=== PATIENT | male | born 1970 | race Caucasian/White ===

== ENCOUNTER 2023-02-18 00:14 | Emergency (ER) | payer SELFPAY ==
[2023-02-18 00:35] VITALS: BP 140/82; PULSE 100; RESP 20; BMI 33.6
[2023-02-18] MEDS ORDERED: DIPHTH,PERTUSS(ACELL),TET 0.5 ML DISP.SYRIN IM ONE (00:42)
[2023-02-18] MEDS ORDERED: AMOX TR/POT CLAV 875MG/125MG TABLETS (FP) PO ONE (01:15)
[2023-02-18] MEDS ORDERED: AMOX TR/POT CLAV 875MG/125MG TABLETS (FP) ONE (01:22)
== END 2023-02-18 01:50 | disposition home or self-care (01) ==
LOC: JER 00:14
PROC: 0HQDXZZ Repair Right Lower Arm Skin, External Approach (ICD-10-PCS; principal; 2023-02-18)
PROC: 3E0234Z Introduction of Serum, Toxoid and Vaccine into Muscle, Percutaneous Approach (ICD-10-PCS; 2023-02-18)
DX: S51.811A Laceration without foreign body of right forearm, initial encounter (principal); W54.0XXA Bitten by dog, initial encounter
CPT/HCPCS: 90715; 99283-25

== ENCOUNTER 2023-03-02 18:52 | Emergency (ER) | payer SELFPAY ==
[2023-03-02 18:57] VITALS: BP 158/89; PULSE 90; RESP 19; TEMP 98.6; BMI 33.0
== END 2023-03-02 19:40 | disposition home or self-care (01) ==
LOC: JERFT 18:52
DX: Z48.02 Encounter for removal of sutures (principal)
CPT/HCPCS: 99281-25

== ENCOUNTER 2023-12-24 20:18 | Observation (INO) | payer BC ==
[2023-12-24] MEDS ORDERED: FAMOTIDINE 20 MG/50 ML IVPB 20 MG/50 ML MG IVPB ONE (21:17)
[2023-12-24] MEDS: ACETAMINOPHEN 1000 MG/100 ML BAG IVPB ONE (21:23)
[2023-12-24] MEDS: FAMOTIDINE 20 MG/50 ML IVPB 20 MG/50 ML MG IVPB ONE (21:23)
[2023-12-24 21:29] LABS: BASO % 0.5 % (0-2.0); EOS % 1.1 % (0-4.5); HEMATOCRIT 42.7 % (35.4-49); HEMOGLOBIN 14.5 GM/dL (11.7-16.9); LYMPH % 16.1 % (8-40); MCH 29.4 pg (25.7-33.7); MCHC 34.1 g/dl (32.0-35.9); MEAN CELL VOLUME 86.1 fl (80-96); MEAN PLT VOLUME 7.2 fl (7.5-11.1); MONO % 7.9 % (3.8-10.2); NEUT % 74.4 % (42.8-82.8); PLATELET COUNT 412 10^3/uL (134-434); RBC 4.95 M/mm3 (4.00-5.60); RDW 13.2 % (11.9-15.9); WHITE BLOOD COUNT 17.5 K/mm3 (4.0-10.0)
[2023-12-24 21:37] LABS: POTASSIUM 3.9 mmol/L (3.5-5.1)
[2023-12-24 21:41] LABS: CALCIUM 10.8 mg/dL (8.5-10.1)
[2023-12-24 21:42] LABS: ALBUMIN 4.1 g/dl (3.4-5.0)
[2023-12-24 21:47] LABS: BILIRUBIN,TOTAL 0.4 mg/dL (0.2-1); TOT PROT 7.6 g/dl (6.4-8.2)
[2023-12-24 21:48] LABS: BLOOD UREA NITROGEN 21.2 mg/dL (7-18)
[2023-12-24] MEDS ORDERED: morphine SULFATE 4 MG/ML VIAL ONE (22:33)
[2023-12-24] MEDS: morphine SULFATE 4 MG/ML VIAL IVPUSH ONE (22:39)
[2023-12-24 22:42] LABS: URINE APPEARANCE CLEAR; URINE BILIRUBIN NEGATIVE (NEGATIVE); URINE COLOR YELLOW; URINE GLUCOSE (UA) NEGATIVE (NEGATIVE); URINE KETONE NEGATIVE (NEGATIVE)
[2023-12-24 22:43] LABS: EPI CELLS 5.1 /uL (0-25.1); HYALINE CASTS 0.14 /uL (0-3.1); URINE BACTERIA 2.8 /uL (0-1359); URINE LEUK ESTERASE NEGATIVE (NEGATIVE); URINE NITRITE NEGATIVE (NEGATIVE); URINE PROTEIN TRACE (NEGATIVE); URINE RBC 4.9 /uL (0-23.9); URINE UROBILINOGEN 0.2 mg/dL (0.2-1.0); URINE WBC 9.7 /uL (0-25.8)
[2023-12-24] MEDS: SODIUM CHLORIDE 0.9% 500 ML INFUS.BAG IV ONE (23:30)
[2023-12-25] MEDS ORDERED: PANTOPRAZOLE SODIUM 40 MG VIAL ONE (00:28)
[2023-12-25] MEDS: PANTOPRAZOLE SODIUM 40 MG VIAL IVPUSH ONE (00:42)
[2023-12-25 07:03] LABS: BASO % 0.3 % (0-2.0); EOS % 1.5 % (0-4.5); HEMATOCRIT 39.6 % (35.4-49); HEMOGLOBIN 13.4 GM/dL (11.7-16.9); LYMPH % 23.4 % (8-40); MCH 29.6 pg (25.7-33.7); MCHC 33.8 g/dl (32.0-35.9); MEAN CELL VOLUME 87.6 fl (80-96); MEAN PLT VOLUME 7.5 fl (7.5-11.1); MONO % 8.5 % (3.8-10.2); NEUT % 66.3 % (42.8-82.8); PLATELET COUNT 359 10^3/uL (134-434); RBC 4.52 M/mm3 (4.00-5.60); RDW 13.2 % (11.9-15.9); WHITE BLOOD COUNT 13.4 K/mm3 (4.0-10.0)
[2023-12-25 07:14] LABS: CALCIUM 9.6 mg/dL (8.5-10.1)
[2023-12-25 07:15] LABS: ALBUMIN 3.4 g/dl (3.4-5.0); BLOOD UREA NITROGEN 16.4 mg/dL (7-18); MAGNESIUM 1.8 mg/dL (1.8-2.4)
[2023-12-25 07:18] LABS: CREATININE 0.9 mg/dL (0.55-1.3); PHOSPHOROUS 3.8 mg/dL (2.5-4.9)
[2023-12-25 07:20] LABS: BILIRUBIN,TOTAL 0.4 mg/dL (0.2-1); TOT PROT 6.7 g/dl (6.4-8.2)
[2023-12-25] MEDS: INSULIN ASPART SLIDING SCALE (NOVOLOG) 1 VIAL SQ SCH (07:26)
[2023-12-25] MEDS ORDERED: ACETAMINOPHEN INJECTION 100 ML ONE (09:59)
[2023-12-25] MEDS ORDERED: PANTOPRAZOLE SODIUM 40 MG/100 ML BAG IVPB ONE (09:59)
[2023-12-25 10:01] LABS: COCAINE, UR NEGATIVE (NEGATIVE); OPIATES, URI NEGATIVE (NEGATIVE); PHENCYCLIDINE,URINE NEGATIVE (NEGATIVE); URINE AMPHETAMINES NEGATIVE (NEGATIVE)
[2023-12-25 10:02] LABS: METHADONE, UR NEGATIVE (NEGATIVE)
[2023-12-25 10:14] LABS: URINE BARBITURATES NEGATIVE (NEGATIVE); URINE BENZODIAZEPINES POSITIVE (NEGATIVE)
[2023-12-25] MEDS: SODIUM CHLORIDE 1,000 ML IV SCH (10:15)
[2023-12-25] MEDS: ACETAMINOPHEN 1000 MG/100 ML BAG IVPB PRN (10:16)
[2023-12-25] MEDS: PANTOPRAZOLE SODIUM 40 MG VIAL IVPUSH SCH (11:00)
[2023-12-25 19:03] VITALS: BMI 33.2
[2023-12-25 19:32] VITALS: RESP 20
[2023-12-26 09:06] VITALS: TEMP 99.1
[2023-12-26] MEDS: PANTOPRAZOLE 40 MG TABLET PO SCH (10:02)
[2023-12-26 10:27] LABS: BASO % 0.5 % (0-2.0); EOS % 1.4 % (0-4.5); HEMATOCRIT 38.6 % (35.4-49); HEMOGLOBIN 13.2 GM/dL (11.7-16.9); LYMPH % 30.8 % (8-40); MCH 29.9 pg (25.7-33.7); MCHC 34.2 g/dl (32.0-35.9); MEAN CELL VOLUME 87.4 fl (80-96); MEAN PLT VOLUME 7.4 fl (7.5-11.1); MONO % 4.8 % (3.8-10.2); NEUT % 62.5 % (42.8-82.8); PLATELET COUNT 355 10^3/uL (134-434); RBC 4.41 M/mm3 (4.00-5.60); RDW 12.8 % (11.9-15.9); WHITE BLOOD COUNT 8.7 K/mm3 (4.0-10.0)
[2023-12-26 10:54] LABS: POTASSIUM 3.7 mmol/L (3.5-5.1)
[2023-12-26 11:18] LABS: BLOOD UREA NITROGEN 14.5 mg/dL (7-18)
[2023-12-26 11:20] LABS: CALCIUM 9.3 mg/dL (8.5-10.1)
[2023-12-26 11:21] LABS: CREATININE 0.8 mg/dL (0.55-1.3)
[2023-12-26 11:34] VITALS: BP 156/95; PULSE 70
[2023-12-26] MEDS ORDERED: traZODone HCL 50 MG TABLET (FP) PO SCH (22:00)
== END 2023-12-26 13:40 | disposition home or self-care (01) ==
LOC: JER 20:18 → UNDOADMIN 12-25 01:00 → JERBED 12-25 01:00 → INTOOBSV 12-25 10:02 → JERBED 12-25 10:02 → J8W 12-25 17:34
PROVIDERS: ADMIT Internal Medicine; ATTEND Nurse Practitioner Acute Care
PROC: 3E033NZ Introduction of Analgesics, Hypnotics, Sedatives into Peripheral Vein, Percutaneous Approach (ICD-10-PCS; 2023-12-25)
PROC: 3E033GC Introduction of Other Therapeutic Substance into Peripheral Vein, Percutaneous Approach (ICD-10-PCS; 2023-12-25)
PROC: 3E033GC Introduction of Other Therapeutic Substance into Peripheral Vein, Percutaneous Approach (ICD-10-PCS; 2023-12-25)
PROC: 3E0337Z Introduction of Electrolytic and Water Balance Substance into Peripheral Vein, Percutaneous Approach (ICD-10-PCS; 2023-12-25)
PROC: 0DB78ZX Excision of Stomach, Pylorus, Via Natural or Artificial Opening Endoscopic, Diagnostic (ICD-10-PCS; principal; 2023-12-25 16:00)
DX: K26.9 Duodenal ulcer, unspecified as acute or chronic, without hemorrhage or perforation (principal); K44.9 Diaphragmatic hernia without obstruction or gangrene; F10.90 Alcohol use, unspecified, uncomplicated; I10 Essential (primary) hypertension; E78.5 Hyperlipidemia, unspecified; J45.909 Unspecified asthma, uncomplicated; F32.A Depression, unspecified; Z29.9 Encounter for prophylactic measures, unspecified; R10.84 Generalized abdominal pain; F17.210 Nicotine dependence, cigarettes, uncomplicated
CPT/HCPCS: 36415; 71045-TC-FY; 71250-TC; 74177-TC; 80048; 80053; 80307; 81003; 82962; 83036; 83605; 83690; 83735; 84100; 84484; 85025; 87086; 88305-TC; 88342-TC; 93005; 93010; 99285-25; G0378; J0131; Q9967

== ENCOUNTER 2024-03-27 04:25 | Day surgery (SDC) | payer BC ==
[2024-03-20 09:17] VITALS: BMI 33.0
[2024-03-27 11:31] VITALS: BP 140/72; PULSE 78; RESP 18; TEMP 97.8
== END 2024-03-27 11:00 | disposition home or self-care (01) ==
LOC: JASU-ENDO 04:25
PROVIDERS: ATTEND Internal Medicine Gastroenterology
PROC: 0DB78ZX Excision of Stomach, Pylorus, Via Natural or Artificial Opening Endoscopic, Diagnostic (ICD-10-PCS; 2024-03-27)
PROC: 0DJD8ZZ Inspection of Lower Intestinal Tract, Via Natural or Artificial Opening Endoscopic (ICD-10-PCS; principal; 2024-03-27 09:00)
DX: Z12.11 Encounter for screening for malignant neoplasm of colon (principal); K29.50 Unspecified chronic gastritis without bleeding; K31.A19 Gastric intestinal metaplasia without dysplasia, unspecified site
CPT/HCPCS: 43239; G0121; 88305-TC; 88341-TC; 88342-TC